=== PATIENT | male | born 1980 | race African-American/Black ===

== ENCOUNTER 2018-02-13 13:18 | Inpatient (IN) | payer OTHER ==
[2018-02-13 16:01] VITALS: BMI 24.5
--- NOTE | 2018-02-13 16:21 | HP ---
CIWA Score - CIWA Score Nausea/Vomitin-Mild Nausea/No Vomiting Muscle Tremors: 4-Moderate,w/Arms Extend Anxiety: 4-Mod. Anxious/Guarded Agitation: 1-Slight > Activity Paroxysmal Sweats: 4-Forehead w/Sweat Beads Orientation: 0-Oriented Tacttile Disturbances: 0-None Auditory Disturbances: 0-None Visual Disturbances: 0-None Headache: 2-Mild CIWA-Ar Total Score: 16 Admission [facility] - [facility] Chief Complaint: Here for alcohol and cannabis withdrawal. History of Present Illness: 37 yom w/ hx alcohol use disorder. Started drinking at age 22 and it has becomea problem in last 3-4 years. Denies hx seizures or blackouts. Hx marijuana since age 18. Recent trauma and has associated back pain and body (R ) ankle strain w/ pain and on prescribed Naproxen. Walking w/ crutch. Hx. acid reflux and rx'd w/ Zantac. Hx. anxiety disorder and depression and was rx'd in past w/ Lamictal and hydroxyzine. - Ebola screening Have you traveled outside of the country in the last 21 days: No (N) Have you had contact with anyone from an Ebola affected area: No Have you been sick,other than usual withdrawal symptoms: No Do you have a fever: No - Review of Systems Constitutional: Chills (Difficulty going to sleep. Used to take hydralazine but now takes benadry for sleep) EENT: reports: Blurred Vision (Wears glasses.), Nose Congestion, Dental Problems (Difficulty chewing but swallows okay.) Respiratory: reports: No Symptoms reported, Other (Hx bronchitis and SOB) Cardiac: reports: No Symptoms Reported GI: reports: Nausea (r/t withdrawal), Indigestion (acid reflux rx'd w/ Zantac.) : reports: No Symptoms Reported Musculoskeletal: reports: Back Pain (Back pain x 4 years increased since recent trauma. Pain is sharp and averages a 10. Pain is increased with walking and certain movements. Denies pain at this time.), Joint Pain ((R) ankle pain r/t trauma on 02/04. Has a prescription for a boot. Uses a crutch as an aid for walking.), Other (Generalized body pain.) Integumentary: reports: No Symptoms Reported Neuro: reports: Headache (r/t withdrawal and stress), Tremors Endocrine: reports: No Symptoms Reported Hematology: reports: No Symptoms Reported Psychiatric: reports: Orientated x3, Agitated, Anxious (Hx general anxiety disorder. Was taking hydralazine 150 mg for anxiety.), Depressed (Denies suicide or violent ideation. Used to take lamictal.) Patient History - Patient Medical History Hx Anemia: No Hx Asthma: Yes (Bronchitis - takes albuterol sulfate) Hx Chronic Obstructive Pulmonary Disease (COPD): No Hx Cancer: No Hx Cardiac Disorders: No Hx Congestive Heart Failure: No Hx Hypertension: No Hx Hypercholesterolemia: No Hx Pacemaker: No HX Cerebrovascular Accident: No Hx Seizures: No Hx Dementia: No Hx Diabetes: No Hx Gastrointestinal Disorders: No Hx Liver Disease: No Hx Genitourinary Disorders: No Hx Sexually Transmitted Disorders: No Hx Renal Disease (ESRD): No Hx Thyroid Disease: No Hx Human Immunodeficiency Virus (HIV): No (Negative) Hx Hepatitis C: No Hx Depression: Yes (Denies suicide or violent ideation) Hx Suicide Attempt: No Hx Bipolar Disorder: No Hx Schizophrenia: No - Patient Surgical History Hx Neurologic Surgery: No Hx Cataract Extraction: No Hx Cardiac Surgery: No Hx Lung Surgery: No Hx Breast Surgery: No Hx Breast Biopsy: No Hx Abdominal Surgery: No Hx Appendectomy: No Hx Cholecystectomy: No Hx Genitourinary Surgery: No Hx Orthopedic Surgery: No Hx Hysterectomy: No Other Surgical History: Polyp removed from colon 2000 Anesthesia Reaction: No - PPD History Previous Implant?: Yes Documented Results: Negative w/o proof PPD to be Administered?: Yes - Smoking Cessation Smoking history: Current every day smoker Have you smoked in the past 12 months: Yes Aproximately how many cigarettes per day: 10 Hx Chewing Tobacco Use: No Initiated information on smoking cessation: Yes 'Breaking Loose' booklet given: 02/13/18 - Substance & Tx. History Hx Alcohol Use: Yes Hx Substance Use: Yes Substance Use Type: Marijuana Hx Substance Use Treatment: Yes (Previous detox 4 years ago. ) - Substances Abused Alcohol Route: Oral Frequency: Daily Amount used: 2 pints cognac Age of first use: 22 Date of Last Use: 02/13/18 (1 pm) Marijuana/Hashish Route: Smoking Frequency: Daily Amount used: 4 blunts Age of first use: 18 Date of Last Use: 06/22/18 (1 pm) Family Disease History - Family Disease History Family Disease History: Diabetes: Grandparent (MGF), CA: Father (Colon cancer), Mother (Head tumor) Admission Physical Exam [facility] - Vital Signs Vital Signs: Vital Signs - 24 hr 02/13/18 15:59 Temperature 97.7 F Pulse Rate 91 H Respiratory 20 Rate Blood Pressure 125/71 - Physical General Appearance: Yes: Mild Distress, Tremorous, Sweating, Anxious HEENTM: Yes: EOMI, Hearing grossly Normal, KEN Respiratory: Yes: Chest Non-Tender, Lungs Clear, Normal Breath Sounds, No Respiratory Distress Neck: Yes: No masses,lesions,Nodules, Supple Breast: Yes: Breast Exam Deferred Cardiology: Yes: Regular Rhythm, Regular Rate, S1, S2 Abdominal: Yes: Non Tender, Flat, Soft, Increased Bowel Sounds Genitourinary: Yes: Within Normal Limits Back: Yes: Normal Inspection Musculoskeletal: Yes: Joint swelling ((R) ankle), Other (Gait unsteady) Extremities: Yes: Normal Capillary Refill, Tremors (Mild tremor extended arms/ hand), Pedal Edema (!+ edema (R) foot/ankle area. Pedal pulse (+)) Neurological: Yes: electronic musical instrument repairer II-XII NML intact, Fully Oriented, Motor Strength 5/5 Integumentary: Yes: Normal Color, Dry, Warm Lymphatic: Yes: Within Normal Limits - Diagnostic (1) Alcohol dependence with uncomplicated withdrawal Current Visit: Yes Status: Acute (2) Cannabis dependence Current Visit: Yes Status: Acute (3) Right ankle sprain Current Visit: Yes Status: Chronic Qualifiers: Encounter type: subsequent encounter Involved ligament of ankle: unspecified ligament Qualified Code(s): S93.401D - Sprain of unspecified ligament of right ankle, subsequent encounter (4) GERD (gastroesophageal reflux disease) Current Visit: Yes Status: Chronic Qualifiers: Esophagitis presence: esophagitis presence not specified Qualified Code(s) : K21.9 - Gastro-esophageal reflux disease without esophagitis (5) Back pain Current Visit: Yes Status: Chronic Qualifiers: Back pain location: back pain in unspecified location Chronicity: chronic Back pain laterality: unspecified Qualified Code(s): M54.9 - Dorsalgia, unspecified; G89.29 - Other chronic pain Cleared for Admission [facility] - Detox or Rehab [facility] Level of Care: Medically Managed Detox Regimen/Protocol: Valium BHS Breath Alcohol Content Breath Alcohol Content: 0.059 Urine Drug Screen - Results Drug Screen Negative: No Urine Drug Screen Results: THC-Marijuana, BZO-Benzodiazepines
[2018-02-13] MEDS ORDERED: MAG HYDROX/AL HYDROX/SIMETH 30 ML UNIT-DOSE CUP PO PRN (17:13)
[2018-02-13] MEDS ORDERED: guaiFENesin/D-METHORPHAN HB 10 ML UNIT-DOSE CUPS PO PRN (17:13)
[2018-02-13] MEDS ORDERED: NICOTINE POLACRILEX 2 MG GUM BC PRN (17:13)
[2018-02-13] MEDS ORDERED: ACETAMINOPHEN 325 MG TABLET (FP) PO PRN (17:13)
[2018-02-13] MEDS ORDERED: P-EPHED 60MG/TRIPROLIDI 2.5MG TABLET PO PRN (17:13)
[2018-02-13] MEDS ORDERED: MENTHOL/PHENOL 1 EACH UD MM PRN (17:13)
[2018-02-13] MEDS ORDERED: MAGNESIUM HYDROX 2400MG/30ML ORAL SUSPENSION 30 ML CUP PO PRN (17:13)
[2018-02-13] MEDS ORDERED: LOPERAMIDE HCL 2 MG CAPSULE PO PRN (17:13)
[2018-02-13] MEDS ORDERED: MAGNESIUM CITRATE 300 ML BOTTLE PO PRN (17:13)
[2018-02-13] MEDS ORDERED: diazePAM 5 MG TABLET PO ONE (18:30)
[2018-02-13] MEDS: NAPROXEN 500 MG TABLET (FP) PO PRN (21:49)
[2018-02-13] MEDS: THIAMINE HCL 100 MG TABLET (FP) PO SCH (21:49)
[2018-02-13] MEDS: ALBUTEROL SO4 18 GM HFA INHALER IH PRN (21:55)
[2018-02-13] MEDS ORDERED: MELATONIN 5 MG TABLETS PO PRN (22:00)
[2018-02-13] MEDS: diazePAM 5 MG TABLET PO SCH (22:46)
[2018-02-14] MEDS: diazePAM 5 MG TABLET PO SCH ×3 (06:12→22:12)
[2018-02-14 10:28] LABS: HEMATOCRIT 34.9 % (35.4-49); HEMOGLOBIN 11.8 GM/dL (11.7-16.9); MCH 34.1 pg (25.7-33.7); MCHC 33.8 g/dl (32.0-35.9); MEAN CELL VOLUME 100.8 fl (80-96); PLATELET COUNT 292 K/MM3 (134-434); RBC 3.46 M/mm3 (4.00-5.60); RDW 12.8 % (11.9-15.9); WHITE BLOOD COUNT 6.5 K/mm3 (4.0-10.0)
[2018-02-14 10:33] LABS: URINE APPEARANCE CLEAR; URINE BILIRUBIN NEGATIVE (<2.0 mg/dL); URINE COLOR YELLOW; URINE GLUCOSE (UA) NEGATIVE (NEGATIVE); URINE KETONE NEGATIVE (NEGATIVE); URINE LEUK ESTERASE NEGATIVE (NEGATIVE); URINE NITRITE NEGATIVE (NEGATIVE); URINE PROTEIN NEGATIVE (NEGATIVE); URINE UROBILINOGEN NEGATIVE mg/dL (0.2-1.0)
[2018-02-14] MEDS: PRENATAL VITAMINS W/ FOLIC ACID TABLET (FP) PO SCH (10:43)
[2018-02-14] MEDS: NICOTINE 21 MG/24 HOURS TOPICAL PATCH TD SCH (10:43)
[2018-02-14 10:45] LABS: ALBUMIN 3.3 g/dl (3.4-5.0); ANION GAP 8 (8-16); BLOOD UREA NITROGEN 15 mg/dL (7-18); CALCIUM 8.3 mg/dL (8.5-10.1); CHLORIDE 106 mmol/L (98-107); CO2 27 mmol/L (21-32); CREATININE 0.9 mg/dL (0.7-1.3); GLUCOSE,RANDOM 82 mg/dL (74-106); SGOT/AST 31 U/L (15-37); SGPT/ALT 43 U/L (12-78); SODIUM 141 mmol/L (136-145)
[2018-02-14 10:48] LABS: ALK PHOS 45 U/L (45-117); BILIRUBIN,TOTAL 0.4 mg/dL (0.2-1.0); TOT PROT 6.1 g/dl (6.4-8.2)
--- NOTE | 2018-02-14 17:30 | PN ---
[facility] CIWA - CIWA Score Nausea/Vomitin-No Nausea/No Vomiting Muscle Tremors: 3 Anxiety: 4-Mod. Anxious/Guarded Agitation: 3 Paroxysmal Sweats: 3 Orientation: 0-Oriented Tacttile Disturbances: 2-Mild Itch/Numbness/Burn Auditory Disturbances: 0-None Visual Disturbances: 2-Mild Sensitivity Headache: 0-None Present CIWA-Ar Total Score: 17 BHS Progress Note (SOAP) Subjective: Sweating, Constipation, Fatigue, Anxious. Objective: PATIENT A & O X 3, OBSERVED AMBULATING ON UNIT. NO ACUTE DISTRESS. 02/14/18 17:32 Vital Signs Temperature 97.1 F L 02/14/18 14:33 Pulse Rate 76 02/14/18 14:33 Respiratory Rate 18 02/14/18 14:33 Blood Pressure 101/70 02/14/18 14:33 O2 Sat by Pulse Oximetry (%) Laboratory Tests 02/14/18 02/14/18 02/14/18 08:00 08:00 08:52 WBC 6.5 RBC 3.46 L Hgb 11.8 Hct 34.9 L MCV 100.8 H MCH 34.1 H MCHC 33.8 RDW 12.8 Plt Count 292 MPV 8.0 Sodium 141 Potassium 4.0 Chloride 106 Carbon Dioxide 27 Anion Gap 8 BUN 15 Creatinine 0.9 Creat Clearance w eGFR > 60 Random Glucose 82 Calcium 8.3 L Total Bilirubin 0.4 AST 31 ALT 43 Alkaline Phosphatase 45 Total Protein 6.1 L Albumin 3.3 L Urine Color Yellow Urine Appearance Clear Urine pH 6.0 Ur Specific [place] 1.023 Urine Protein Negative Urine Glucose (UA) Negative Urine Ketones Negative Urine Blood Negative Urine Nitrite Negative Urine Bilirubin Negative Urine Urobilinogen Negative Ur Leukocyte Esterase Negative LABS NOTED. RPR RESULT PENDING. 02/14/18 17:33 Assessment: 02/14/18 17:32 WITHDRAWAL SYMPTOMS. Plan: CONTINUE DETOX. INCREASE DIALY PO FLUID INTAKE. PRN MOM FOR CONSTIPATION.
[2018-02-14] MEDS: NAPROXEN 500 MG TABLET (FP) PO PRN (18:12)
[2018-02-14] MEDS: hydrOXYzine PAMOATE 50 MG CAPSULE (FP) PO PRN (18:13)
[2018-02-14] MEDS: THIAMINE HCL 100 MG TABLET (FP) PO SCH (22:12)
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
[2018-02-15] MEDS: diazePAM 5 MG TABLET PO SCH ×2 (10:27→22:02)
[2018-02-15] MEDS: PRENATAL VITAMINS W/ FOLIC ACID TABLET (FP) PO SCH (10:27)
[2018-02-15] MEDS: NICOTINE 21 MG/24 HOURS TOPICAL PATCH TD SCH (10:27)
[2018-02-15] MEDS: NAPROXEN 500 MG TABLET (FP) PO PRN ×2 (10:29→22:03)
--- NOTE | 2018-02-15 14:54 | PN ---
[facility] CIWA - CIWA Score Nausea/Vomitin-No Nausea/No Vomiting Muscle Tremors: 4-Moderate,w/Arms Extend Anxiety: 4-Mod. Anxious/Guarded Agitation: 4-Moderately Restless Paroxysmal Sweats: 1-Minimal Palms Moist Orientation: 0-Oriented Tacttile Disturbances: 0-None Auditory Disturbances: 0-None Visual Disturbances: 0-None Headache: 0-None Present CIWA-Ar Total Score: 13 BHS Progress Note (SOAP) Subjective: ANXIETY,SWEATS,,MUSCLE ACHES. Objective: 02/15/18 14:53 Vital Signs 02/15/18 02/15/18 09:45 14:24 Temperature 96.6 F L 96.6 F L Pulse Rate 84 82 Respiratory 20 20 Rate Blood Pressure 107/65 90/60 Laboratory Tests 02/14/18 02/14/18 02/14/18 08:00 08:00 08:00 WBC 6.5 RBC 3.46 L Hgb 11.8 Hct 34.9 L MCV 100.8 H MCH 34.1 H MCHC 33.8 RDW 12.8 Plt Count 292 MPV 8.0 Sodium 141 Potassium 4.0 Chloride 106 Carbon Dioxide 27 Anion Gap 8 BUN 15 Creatinine 0.9 Creat Clearance w eGFR > 60 Random Glucose 82 Calcium 8.3 L Total Bilirubin 0.4 AST 31 ALT 43 Alkaline Phosphatase 45 Total Protein 6.1 L Albumin 3.3 L Urine Color Urine Appearance Urine pH Ur Specific [place] Urine Protein Urine Glucose (UA) Urine Ketones Urine Blood Urine Nitrite Urine Bilirubin Urine Urobilinogen Ur Leukocyte Esterase RPR Titer Nonreactive 02/14/18 08:52 WBC RBC Hgb Hct MCV MCH MCHC RDW Plt Count MPV Sodium Potassium Chloride Carbon Dioxide Anion Gap BUN Creatinine Creat Clearance w eGFR Random Glucose Calcium Total Bilirubin AST ALT Alkaline Phosphatase Total Protein Albumin Urine Color Yellow Urine Appearance Clear Urine pH 6.0 Ur Specific [place] 1.023 Urine Protein Negative Urine Glucose (UA) Negative Urine Ketones Negative Urine Blood Negative Urine Nitrite Negative Urine Bilirubin Negative Urine Urobilinogen Negative Ur Leukocyte Esterase Negative RPR Titer Assessment: 02/15/18 14:54 WITHDRAWAL SX Plan: CONTINUE DETOX
[2018-02-15] MEDS: THIAMINE HCL 100 MG TABLET (FP) PO SCH (22:02)
[2018-02-15] MEDS: hydrOXYzine PAMOATE 50 MG CAPSULE (FP) PO PRN (22:06)
[2018-02-15] MEDS: ALBUTEROL SO4 18 GM HFA INHALER IH PRN (22:06)
[2018-02-16] MEDS: diazePAM 5 MG TABLET PO PRN ×2 (00:15→16:45)
[2018-02-16] MEDS: PRENATAL VITAMINS W/ FOLIC ACID TABLET (FP) PO SCH (10:13)
[2018-02-16] MEDS: NICOTINE 21 MG/24 HOURS TOPICAL PATCH TD SCH (10:13)
[2018-02-16] MEDS: diazePAM 5 MG TABLET PO SCH (10:13)
[2018-02-16] MEDS: NAPROXEN 500 MG TABLET (FP) PO PRN (10:14)
--- NOTE | 2018-02-16 14:33 | PN ---
BHS Progress Note (SOAP) Subjective: Sleep disturbance Shakes Sweats Objective: 02/16/18 14:33 A & O x 3 Not in acute distress Vital Signs Temperature 97.3 F L 02/16/18 13:12 Pulse Rate 89 02/16/18 13:12 Respiratory Rate 18 02/16/18 13:12 Blood Pressure 117/73 02/16/18 13:12 O2 Sat by Pulse Oximetry (%) Assessment: 02/16/18 14:33 withdrawal sx Plan: continue detox
[2018-02-16 17:10] VITALS: BP 113/68; PULSE 78; TEMP 97.1
--- NOTE | 2018-02-16 18:13 | PN ---
[facility] Progress Note Note: Patient requested to leave AMA, although advised on the risk of not completing treatment. Patient in stable condition, denies suicidal / homicidal ideation.
--- NOTE | 2018-02-16 18:16 | DS ---
[facility] Detox Discharge Summary Admission Date: 02/13/18 Discharge Date: 02/16/18 - History Present History: Alcohol Dependence Additional Comments: Patient left AMA. Patient in stable medical condition. Patient denies suicidal / homicidal ideation. Patient advised on the risk of not completing treatment. If worsening symptoms are present to follow up with, ED, urgent care or PMD. Pertinent Past History: Asthma GERD Nicotine Dependence - Physical Exam Results Vital Signs: Vital Signs Temperature 97.1 F L 02/16/18 17:09 Pulse Rate 78 02/16/18 17:09 Respiratory Rate 18 02/16/18 17:09 Blood Pressure 113/68 02/16/18 17:09 O2 Sat by Pulse Oximetry (%) Pertinent Admission Physical Exam Findings: Vital Signs Temperature 97.1 F L 02/16/18 17:09 Pulse Rate 78 02/16/18 17:09 Respiratory Rate 18 02/16/18 17:09 Blood Pressure 113/68 02/16/18 17:09 O2 Sat by Pulse Oximetry (%) Laboratory Last Values WBC 6.5 K/mm3 (4.0-10.0) 02/14/18 08:00 RBC 3.46 M/mm3 (4.00-5.60) L 02/14/18 08:00 Hgb 11.8 GM/dL (11.7-16.9) 02/14/18 08:00 Hct 34.9 % (35.4-49) L 02/14/18 08:00 MCV 100.8 fl (80-96) H 02/14/18 08:00 MCH 34.1 pg (25.7-33.7) H 02/14/18 08:00 MCHC 33.8 g/dl (32.0-35.9) 02/14/18 08:00 RDW 12.8 % (11.9-15.9) 02/14/18 08:00 Plt Count 292 K/MM3 (134-434) 02/14/18 08:00 MPV 8.0 fl (7.5-11.1) 02/14/18 08:00 Sodium 141 mmol/L (136-145) 02/14/18 08:00 Potassium 4.0 mmol/L (3.5-5.1) 02/14/18 08:00 Chloride 106 mmol/L (98-107) 02/14/18 08:00 Carbon Dioxide 27 mmol/L (21-32) 02/14/18 08:00 Anion Gap 8 (8-16) 02/14/18 08:00 BUN 15 mg/dL (7-18) 02/14/18 08:00 Creatinine 0.9 mg/dL (0.7-1.3) 02/14/18 08:00 Creat Clearance w eGFR > 60 (>60) 02/14/18 08:00 Random Glucose 82 mg/dL (74-106) 02/14/18 08:00 Calcium 8.3 mg/dL (8.5-10.1) L 02/14/18 08:00 Total Bilirubin 0.4 mg/dL (0.2-1.0) 02/14/18 08:00 AST 31 U/L (15-37) 02/14/18 08:00 ALT 43 U/L (12-78) 02/14/18 08:00 Alkaline Phosphatase 45 U/L (45-117) 02/14/18 08:00 Total Protein 6.1 g/dl (6.4-8.2) L 02/14/18 08:00 Albumin 3.3 g/dl (3.4-5.0) L 02/14/18 08:00 Urine Color Yellow 02/14/18 08:52 Urine Appearance Clear 02/14/18 08:52 Urine pH 6.0 (5.0-8.0) 02/14/18 08:52 Ur Specific [place] 1.023 (1.001-1.035) 02/14/18 08:52 Urine Protein Negative (NEGATIVE) 02/14/18 08:52 Urine Glucose (UA) Negative (NEGATIVE) 02/14/18 08:52 Urine Ketones Negative (NEGATIVE) 02/14/18 08:52 Urine Blood Negative (NEGATIVE) 02/14/18 08:52 Urine Nitrite Negative (NEGATIVE) 02/14/18 08:52 Urine Bilirubin Negative (<2.0 mg/dL) 02/14/18 08:52 Urine Urobilinogen Negative mg/dL (0.2-1.0) 02/14/18 08:52 Ur Leukocyte Esterase Negative (NEGATIVE) 02/14/18 08:52 RPR Titer Nonreactive (NONREACTIVE) 02/14/18 08:00 - Treatment Patient has Accepted a Rehab Referral to: Patient to follow up with out patient services - Medication Discharge Medications: Ambulatory Orders Naproxen [Naprosyn -] 500 mg PO BID 02/13/18 Albuterol Sulfate Inhaler - [Ventolin HFA Inhaler -] 2 inh PO Q6H #1 inhaler - Diagnosis (1) Alcohol dependence with uncomplicated withdrawal Current Visit: Yes Status: Acute (2) Asthma Current Visit: Yes Status: Chronic Qualifiers: Asthma severity: mild Asthma persistence: unspecified Asthma complication type: uncomplicated Qualified Code(s): J45.909 - Unspecified asthma, uncomplicated (3) Back pain Current Visit: Yes Status: Chronic Qualifiers: Back pain location: back pain in unspecified location Chronicity: chronic Back pain laterality: unspecified Qualified Code(s): M54.9 - Dorsalgia, unspecified; G89.29 - Other chronic pain (4) Cannabis dependence Current Visit: Yes Status: Chronic (5) GERD (gastroesophageal reflux disease) Current Visit: Yes Status: Chronic Qualifiers: Esophagitis presence: esophagitis presence not specified Qualified Code(s) : K21.9 - Gastro-esophageal reflux disease without esophagitis (6) Nicotine dependence Current Visit: Yes Status: Chronic Qualifiers: Nicotine product type: cigarettes Substance use status: in withdrawal Qualified Code(s): F17.213 - Nicotine dependence, cigarettes, with withdrawal - AMA Did Patient Leave Against Medical Advice: Yes
--- NOTE | 2018-02-16 22:14 | EKG ---
Test Reason : Blood Pressure : / mmHG Vent. Rate : 079 BPM Atrial Rate : 079 BPM P-R Int : 140 ms QRS Dur : 084 ms QT Int : 376 ms P-R-T Axes : 075 056 050 degrees QTc Int : 431 ms SINUS RHYTHM WITH MARKED SINUS ARRHYTHMIA OTHERWISE NORMAL ECG NO PREVIOUS ECGS AVAILABLE Confirmed by ROSA RAMEY MD ([id number]) on 02/16/2018 10:13:59 PM Referred By: Confirmed By:ROSA RAMEY MD
[2018-02-17] MEDS ORDERED: diazePAM 5 MG TABLET PO SCH (10:00)
== END 2018-02-16 18:25 | disposition left against medical advice (07) | DRG 770 ==
LOC: YASAS 13:18 → Y3N 18:01
PROVIDERS: ADMIT Family Medicine Addiction Medicine; ATTEND Family Medicine Addiction Medicine
PROC: HZ2ZZZZ Detoxification Services for Substance Abuse Treatment (ICD-10-PCS; principal; 2018-02-13)
DX: F10.230 Alcohol dependence with withdrawal, uncomplicated (principal); F12.20 Cannabis dependence, uncomplicated; F17.213 Nicotine dependence, cigarettes, with withdrawal; F19.24 Other psychoactive substance dependence with psychoactive substance-induced mood disorder; J45.909 Unspecified asthma, uncomplicated; K21.9 Gastro-esophageal reflux disease without esophagitis; M54.9 Dorsalgia, unspecified; G89.29 Other chronic pain; S93.401D Sprain of unspecified ligament of right ankle, subsequent encounter; X58.XXXD Exposure to other specified factors, subsequent encounter
CPT/HCPCS: 36415; 80053; 81003; 85027; 86593; 93005; 93010